=== PATIENT | male | born 1960 | race Caucasian/White ===

== ENCOUNTER 2017-09-02 14:33 | Observation (INO) | payer SELFPAY ==
[~2017-09-02] VITALS: Ht 177.8 cm; Wt 95.3 kg
[2017-09-02] MEDS ORDERED: NS(*) 0.9% 1000 ML BAG 1,000 ML IV ONE ×3 (14:35→18:50)
[2017-09-02] MEDS ORDERED: FOSPHENYTOIN(*) 500 MG/10 ML V 500 MG in NS(*) 0.9% 100 ML BAG 100 ML IVPB ONE (14:35)
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
[2017-09-02] MEDS ORDERED: GLIP-152 PO (14:37)
[2017-09-02] MEDS ORDERED: METF-420 PO (14:37)
[2017-09-02] MEDS ORDERED: LORazepam 2 MG/ML VIAL ONE (14:55)
[2017-09-02] MEDS ORDERED: LORazepam 2 MG/ML VIAL IVP ONE ×3 (14:55→18:00)
[2017-09-02 15:10] LABS: PLATELET COUNT, AUTOMATED 281 K/uL (150-450)
--- NOTE | 2017-09-02 15:17 | RADIOLOGY IMAGING REPORT ---
[place] [facility] [place] Bradley Egan : 1960 MR: [id number] V: [id number] EXAM DATE: ORDERING PHYSICIAN: LUIS PORTER TECHNOLOGIST: Location: [facility] Patient: Bradley Egan : 1960 Visit/Account:[id number] Date of Sevice: 09/02/2017 EXAMINATION: CT head without IV contrast HISTORY: Seizure. COMPARISON: None. TECHNIQUE: Contiguous axial images were obtained from the skull base to the vertex without intraven ous contrast. Sagittal and coronal reformatted images are also submitted. One of the following dose optimization techniques was utilized in the performance of this exam: Autom ated exposure control; adjustment of the mA and/or kV according to the patient's size; or use of an i terative reconstruction technique. Specific details can be referenced in the facility's radiology C T exam operational policy. FINDINGS: Brain volume: Normal. Ventricles: Normal. Acute ischemic changes: None. Hemorrhage: No acute intracranial hemorrhage. Masses/edema: None. Lynn-white: Negative. White matter: Normal. Vessels: Negative. Extra-axial: Negative. Calvarium/scalp: No acute fracture. Skull base/visualized face: Negative. Visualized sinuses/orbits: Negative. IMPRESSION: No acute fracture, hemorrhage or intracranial mass lesion. No CT evidence of acute infarct. Report Dictated By: Rere Chavarria MD at 09/02/2017 3:10 PM Report E-Signed By: Rere Chavarria MD at 09/02/2017 3:12 PM WSN:[email or web address]
[2017-09-02] MEDS ORDERED: INSU HUM REG 100 U/ML(ER ONLY) 10 ML VIAL IV ONE (15:20)
--- NOTE | 2017-09-02 15:31 | EKG ---
FACILITY: [facility] PATIENT NAME: YURI STEWART : [id number] MR: [id number] V: [id number] EXAM DATE: ORDERING PHYSICIAN: LUIS PORTER TECHNOLOGIST: Test Reason : Blood Pressure : / mmHG Vent. Rate : 091 BPM Atrial Rate : 091 BPM P-R Int : 132 ms QRS Dur : 084 ms QT Int : 358 ms P-R-T Axes : 034 037 032 degrees QTc Int : 440 ms Normal sinus rhythm Normal ECG No previous ECGs available Confirmed by BREN CHASE ([id number]) on 09/03/2017 6:42:18 AM Referred By: Confirmed By:BREN CHASE
--- NOTE | 2017-09-02 16:49 | RADIOLOGY IMAGING REPORT ---
FACILITY: [facility] PATIENT NAME: Bradley Egan : 1960 MR: [id number] V: [id number] EXAM DATE: ORDERING PHYSICIAN: LUIS PORTER [place]CHN[place] [facility] [place] : 1960 Visit/Account:[id number] Date of Sevice: 09/02/2017 Exam type: CHEST PA AND LAT History: seizure Comparison: None. Findings: The lungs are free of acute effusions, infiltrates or edema. There is no evidence of a pneumothorax or pneumomediastinum. Cardiac silhouette is normal in size. The trachea is in midline. IMPRESSION: 1. No acute cardiopulmonary process is seen Report Dictated By: Shea Barrett MD at 09/02/2017 4:45 PM Report E-Signed By: Shea Barrett MD at 09/02/2017 4:45 PM WSN:[id number]
--- NOTE | 2017-09-02 16:49 | RADIOLOGY IMAGING REPORT ---
FACILITY: [facility] [place] PATIENT NAME: Bradley Egan : 1960 MR: [id number] V: [id number] EXAM DATE: ORDERING PHYSICIAN: LUIS PORTER TECHNOLOGIST: Location: [facility] Patient: Bradley Egan : 1960 Visit/Account:[id number] Date of Sevice: 09/02/2017 EXAMINATION: Orbit radiograph single view HISTORY: Pre-MRI screening. History of corneal foreign body. Seizure. COMPARISON: None. FINDINGS: Single view of the orbits is obtained. No radiopaque or metallic foreign bodies of either orbit. Visualized bony structures are intact. IMPRESSION: Orbits are cleared for MRI. Report Dictated By: Rere Chavarria MD at 09/02/2017 4:43 PM Report E-Signed By: Rere Chavarria MD at 09/02/2017 4:43 PM WSN:[id number]
[2017-09-02] MEDS ORDERED: INSU HUM REG 100 U/ML(ER ONLY) 10 ML VIAL IVP ONE (16:50)
[2017-09-02] MEDS ORDERED: INSU HUM REG 100 U/ML(ER ONLY) 10 ML VIAL SUBQ ONE ×2 (17:30)
[2017-09-02] MEDS ORDERED: GADOBENATE 529MG/1ML 15ML VIAL IVP ONE (17:53)
[2017-09-02] MEDS ORDERED: INS HUM REG* 100 U/ML(ER ONLY) 100 UNIT in NS(*) 0.9% 100 ML BAG 99 ML IVPB ONE (17:55)
--- NOTE | 2017-09-02 20:23 | RADIOLOGY IMAGING REPORT ---
FACILITY: [facility] PATIENT NAME: Bradley Egan : 1960 MR: [id number] V: [id number] EXAM DATE: ORDERING PHYSICIAN: LUIS PORTER TECHNOLOGIST: [place] [facility] [place] Bradley Egan : 1960 Visit/Account:[id number] Date of Sevice: 09/02/2017 EXAMINATION: MRI Brain without IV contrast MRI Brain with IV contrast Cervical spine MRI without IV contrast Cervical spine MRI with IV contrast HISTORY: Seizure. Left arm pain. COMPARISON: None. TECHNIQUE: Multi-planar, multi-sequence brain and cervical spine MRI was performed before and after IV gadolinium. CONTRAST: 15 mL of IV MultiHance FINDINGS: Motion artifact on multiple sequences. BRAIN: Brain volume: Normal. Sagittal midline structures: Negative. Ventricles: Negative. Acute ischemic changes: None. Hemorrhage: None. Masses / edema: None. Enhancement: Normal. Lynn-white: Negative. White matter: Negative. Vessels: Negative. Extra-axial: None. Calvarium / scalp: Negative. Skull base: Negative. Visualized sinuses / orbits: Negative. Visualized upper neck: Negative. CERVICAL SPINE: Alignment: Normal. Vertebral marrow signal: Negative. Cranio-cervical junction: Negative. Visualized posterior fossa: Negative. Soft tissues: Negative. Cervical cord: Negative. Enhancement pattern: Negative. Disc Spaces: C1-2: Negative. C2-3: Small central disc protrusion. No significant stenosis. C3-4: Mild disc at loss with broad-based disc osteophyte complex and uncovertebral hypertrophy. No si gnificant spinal canal stenosis. Cannot evaluate for neural foraminal stenosis secondary to motion ar tifact. C4-5: Negative. C5-6: Negative. C6-7: Circumferential disc osteophyte complex. No significant spinal canal stenosis. Cannot evaluate neural foraminal stenosis secondary to motion artifact. C7-T1: Negative. IMPRESSION: 1. Suboptimal evaluation secondary to motion artifact on multiple sequences. 2. No definite abnormality in the brain. 3. Mild multilevel degenerative disc disease in the cervical spine. No significant spinal canal steno sis. Cannot evaluate for neural foraminal stenosis secondary to motion artifact. 4. No definite abnormal signal in the cervical spinal cord. Report Dictated By: Ronal Villarreal MD at 09/02/2017 8:11 PM Report E-Signed By: Ronal Villarreal MD at 09/02/2017 8:19 PM WSN:[id number]
--- NOTE | 2017-09-02 20:23 | RADIOLOGY IMAGING REPORT ---
FACILITY: [facility] - [place] PATIENT NAME: Bradley Egan : 1960 MR: [id number] V: [id number] EXAM DATE: ORDERING PHYSICIAN: LUIS PORTER TECHNOLOGIST: Location: [facility] - [place], [place] Patient: Bradley Egan : 1960 Visit/Account:[id number] Date of Sevice: 09/02/2017 EXAMINATION: MRI Brain without IV contrast MRI Brain with IV contrast Cervical spine MRI without IV contrast Cervical spine MRI with IV contrast HISTORY: Seizure. Left arm pain. COMPARISON: None. TECHNIQUE: Multi-planar, multi-sequence brain and cervical spine MRI was performed before and after IV gadolinium. CONTRAST: 15 mL of IV MultiHance FINDINGS: Motion artifact on multiple sequences. BRAIN: Brain volume: Normal. Sagittal midline structures: Negative. Ventricles: Negative. Acute ischemic changes: None. Hemorrhage: None. Masses / edema: None. Enhancement: Normal. Lynn-white: Negative. White matter: Negative. Vessels: Negative. Extra-axial: None. Calvarium / scalp: Negative. Skull base: Negative. Visualized sinuses / orbits: Negative. Visualized upper neck: Negative. CERVICAL SPINE: Alignment: Normal. Vertebral marrow signal: Negative. Cranio-cervical junction: Negative. Visualized posterior fossa: Negative. Soft tissues: Negative. Cervical cord: Negative. Enhancement pattern: Negative. Disc Spaces: C1-2: Negative. C2-3: Small central disc protrusion. No significant stenosis. C3-4: Mild disc at loss with broad-based disc osteophyte complex and uncovertebral hypertrophy. No si gnificant spinal canal stenosis. Cannot evaluate for neural foraminal stenosis secondary to motion ar tifact. C4-5: Negative. C5-6: Negative. C6-7: Circumferential disc osteophyte complex. No significant spinal canal stenosis. Cannot evaluate neural foraminal stenosis secondary to motion artifact. C7-T1: Negative. IMPRESSION: 1. Suboptimal evaluation secondary to motion artifact on multiple sequences. 2. No definite abnormality in the brain. 3. Mild multilevel degenerative disc disease in the cervical spine. No significant spinal canal steno sis. Cannot evaluate for neural foraminal stenosis secondary to motion artifact. 4. No definite abnormal signal in the cervical spinal cord. Report Dictated By: Ronal Villarreal MD at 09/02/2017 8:11 PM Report E-Signed By: Ronal Villarreal MD at 09/02/2017 8:19 PM WSN:[id number]
[2017-09-02 23:15] VITALS: BP 164/103
[2017-09-02] MEDS ORDERED: ACETAMINOPHEN 325 MG TAB PO PRN (23:20)
[2017-09-02] MEDS ORDERED: INFLUENZA VIRUS VAC 0.5 ML SYR IM ONLY ONE (23:20)
[2017-09-02] MEDS ORDERED: NS(*) 0.9% 1000 ML BAG 1,000 ML IV PRN (23:20)
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
[2017-09-03 06:01] VITALS: BP 132/71
[2017-09-03 06:22] LABS: PLATELET COUNT, AUTOMATED 221 K/uL (150-450)
[2017-09-03] MEDS ORDERED: NS 0.9% IVPB SCH (09:00)
[2017-09-03] MEDS ORDERED: FOSPHENYTOIN IVPB SCH (09:00)
[2017-09-03] MEDS ORDERED: [UNRECOGNIZED DRUG - OTHER] IVPB SCH (09:00)
[2017-09-03] MEDS ORDERED: GLIP-152 PO (09:01)
[2017-09-03] MEDS: glipiZIDE 5 MG TAB PO SCH (09:21)
[2017-09-03] MEDS ORDERED: LIDOCAINE 2% VISC SLN 15ML UDC PO PRN (09:25)
[2017-09-03] MEDS: INSULIN HUM LISPRO 100 UN/ML 3 ML VIAL SUBQ PRN ×4 (09:35→20:32)
[2017-09-03] MEDS: PHENYTOIN ER 100 MG CAPER PO SCH ×3 (09:35→20:32)
[2017-09-03 09:38] VITALS: Ht 177.8 cm; Wt 95.3 kg
--- NOTE | 2017-09-03 11:10 | Hospitalist Progress Note ---
Subjective Progress Notes Subjective This patient was admitted for seizures. He has not had any seizure activity since admission. Patient Complains of: Cardiovascular: No: Chest Pain Respiratory: No: Shortness of Breath Physical Exam Vital Signs Date Time Temp Pulse Resp B/P (MAP) Pulse Ox O2 Delivery O2 Flow Rate FiO2 09/03/17 09:42 76 09/03/17 06:01 98.5 18 132/71 (91) 92 Room Air 09/03/17 02:11 1.0 Intake and Output 09/04/17 07:00 # Voids 1 Neuro: No Gross deficits Cardiovascular: Regular Rate and Rhythm Respiratory: Clear to Auscultation Result Diagram: 09/03/1758 09/03/17 0558 Assessment and Plan Problems: (1) Seizure Status: Acute Assessment & Plan: He did present with what sounds like a focal motor seizure that generalized. He bit his tongue and was confused after the event. His lab work on arrival at the ER was consistent with this as well (elevated lactate and CPK, mild leukocytosis, elevated glucose). CT and MRI were unremarkable. He was given Ativan and fosphenytoin in the ER. We will start him on scheduled phenytoin today. An EEG is also pending. He has been informed that he will not be able to drive and will need to make arrangements to get his truck back home. (2) Type 2 diabetes mellitus Status: Chronic Assessment & Plan: The patient is on chronic treatment with metformin and glipizide. The metformin is on hold secondary to IV contrast. The glipizide has been restarted. We are also covering him with sliding scale level #2. (3) DARIN (obstructive sleep apnea) Status: Chronic Assessment & Plan: The patient wears a CPAP mask chronically. Exam Sepsis Risk: No Definite Risk PHILIP MC DO Sep 03, 2017 11:10
[2017-09-03 11:48] VITALS: BP 133/81
[2017-09-03 15:41] VITALS: BP 147/81
[2017-09-03 18:32] VITALS: BP 146/83
[2017-09-03 23:03] VITALS: BP 136/74
[2017-09-04 03:18] VITALS: BP 137/72
[2017-09-04 06:56] VITALS: BP 149/91
[2017-09-04] MEDS: glipiZIDE 5 MG TAB PO SCH (08:46)
[2017-09-04] MEDS: PHENYTOIN ER 100 MG CAPER PO SCH ×2 (08:46→12:26)
[2017-09-04] MEDS: INSULIN HUM LISPRO 100 UN/ML 3 ML VIAL SUBQ PRN ×2 (08:47→12:26)
[2017-09-04] MEDS ORDERED: metFORMIN HCL XR 500 MG TABCR PO SCH (09:00)
[2017-09-04] MEDS ORDERED: METXR500 PO (11:42)
[2017-09-04] MEDS ORDERED: PHEN100C88 PO (11:42)
--- NOTE | 2017-09-04 11:51 | Hospitalist Depart ---
Discharge Summary Reason for Hosp/Final Diag: (1) Seizure Status: Acute Hospital Course & Plan: He did present with what sounds like a focal motor seizure that generalized. He bit his tongue and was confused after the event. His lab work on arrival at the ER was consistent with this as well (elevated lactate and CPK, mild leukocytosis, elevated glucose). CT and MRI were unremarkable. He was given Ativan and fosphenytoin in the ER. He has been started on scheduled phenytoin. An EEG showed no seizure activity. He has been informed that he will not be able to drive and will need to make arrangements to get his truck back home. (2) Type 2 diabetes mellitus Status: Chronic Hospital Course & Plan: The patient is on chronic treatment with metformin and glipizide. He has been out of metformin for awhile, so hasn't been on it. Glucose was elevated on admission and had glucose in the urine suggesting chronically elevated glucose. It will be restarted today. Continue the glipizide. (3) DARIN (obstructive sleep apnea) Status: Chronic Hospital Course & Plan: The patient wears a CPAP mask chronically. Departure Weight (Pounds): 210 Result Diagram: 09/03/17 0558 09/03/17 0558 Item Value Date Time White Blood Count 12.8 k/uL H 09/02/17 1450 White Blood Count 12.2 k/uL H 09/03/17 0558 Hemoglobin 16.6 g/dL 09/02/17 1450 Hemoglobin 14.5 g/dL 09/03/17 0558 Neutrophils (%) (Auto) 78.5 % H 09/02/17 1450 Neutrophils (%) (Auto) 72.7 % H 09/03/17 0558 Platelet Count 281 K/uL 09/02/17 1450 Platelet Count 221 K/uL 09/03/17 0558 Troponin I 0.051 ng/ml 09/02/17 0000 Calcium Level 9.6 mg/dl 09/02/17 1450 Magnesium Level 2.3 mg/dl H 09/02/17 1450 Total Bilirubin 0.6 mg/dl 09/02/17 1450 Aspartate Amino Transf (AST/SGOT) 36 U/L H 09/02/17 1450 Alanine Aminotransferase (ALT/SGPT) 52 U/L 09/02/17 1450 Alkaline Phosphatase 72 U/L 09/02/17 1450 Random Glucose 424 mg/dl H 09/02/17 1450 Carbon Dioxide Level 14 mmol/L *L 09/02/17 1450 Blood Urea Nitrogen 19 mg/dl 09/02/17 1450 Creatinine 1.20 mg/dl 09/02/17 1450 Lactate 12.7 mmol/L *H 09/02/17 1450 Hemoglobin A1c 10.2 % H 09/02/17 1450 Osmolality 310 mOSM/K H 09/02/17 1450 Whole Blood Glucose 415 mg/DL H 09/02/17 1645 Whole Blood Glucose 213 mg/DL H 09/02/17 1943 Troponin I 0.031 ng/ml 09/03/17 0558 Lactate 2.2 mmol/L H 09/02/17 2110 Calcium Level 8.6 mg/dl 09/02/170 Calcium Level 8.4 mg/dl 09/03/17 0558 Total Bilirubin 0.7 mg/dl 09/03/17 0558 Aspartate Amino Transf (AST/SGOT) 28 U/L 09/03/17 0558 Alanine Aminotransferase (ALT/SGPT) 49 U/L 09/03/17 0558 Alkaline Phosphatase 52 U/L 09/03/17 0558 Carbon Dioxide Level 21 mmol/L L 09/02/170 Carbon Dioxide Level 19 mmol/L L 09/03/17 0558 Blood Urea Nitrogen 16 mg/dl 09/02/17 2110 Creatinine 1.00 mg/dl 09/02/17 2110 Creatinine 1.00 mg/dl 09/03/17 0558 Blood Urea Nitrogen 15 mg/dl 09/03/17 0558 Total Creatine Kinase 348 U/L H 09/02/17 2110 Total Creatine Kinase 464 U/L H 09/03/17 0558 Lactate 1.7 mmol/L 09/03/17 0558 Urine WBC 1 /HPF 09/02/17 1541 Urine RBC None /HPF 09/02/17 1541 Urine Leukocyte Esterase Negative 09/02/17 1541 Urine Ketones Trace mg/dL 09/02/17 1541 Urine Glucose (UA) 500 mg/dL 09/02/17 1541 Urine Blood Small 09/02/17 1541 Serum Alcohol < 10 mg/dl 09/02/17 1450 Acetone, Qualitative Negative 09/02/17 1450 Urine Cannabinoids Screen Negative 09/02/17 1541 Urine Cocaine Screen Negative 09/02/17 1541 Urine Benzodiazepines Screen Negative 09/02/17 1541 Urine Amphetamines Screen Negative 09/02/17 1541 Urine Phencyclidine Screen Negative 09/02/17 1541 Ur Tricyclic Antidepressants Screen Negative 09/02/17 1541 Urine Barbiturates Screen Negative 09/02/17 1541 Urine Opiates Screen Negative 09/02/17 1541 Imaging Please see the hospital chart for details of all the studies 09/02/17 CXR - 1. No acute cardiopulmonary process is seen 09/02/17 Brain MRI - 1. Suboptimal evaluation secondary to motion artifact on multiple sequences. 2. No definite abnormality in the brain. 3. Mild multilevel degenerative disc disease in the cervical spine. No significant spinal canal stenosis. Cannot evaluate for neural foraminal stenosis secondary to motion artifact. 4. No definite abnormal signal in the cervical spinal cord. 09/02/17 Cervical Spine MRI - 1. Suboptimal evaluation secondary to motion artifact on multiple sequences. 2. No definite abnormality in the brain. 3. Mild multilevel degenerative disc disease in the cervical spine. No significant spinal canal stenosis. Cannot evaluate for neural foraminal stenosis secondary to motion artifact. 4. No definite abnormal signal in the cervical spinal cord. 09/02/[address] - No acute fracture, hemorrhage or intracranial mass lesion. No CT evidence of acute infarct. EKG Vent. Rate : 091 BPM Atrial Rate : 091 BPM P-R Int : 132 ms QRS Dur : 084 ms QT Int : 358 ms P-R-T Axes : 034 037 032 degrees QTc Int : 440 ms Normal sinus rhythm Normal ECG No previous ECGs available Confirmed by BREN CHASE ([id number]) on 09/03/2017 6:42:18 AM Condition: Improved Discharge: Home Discharge Instructions Home Meds Active Scripts Phenytoin Sodium Extended (PHENYTOIN SODIUM EXTENDED) 100 Mg Capsule, 100 MG PO TID, #90 CAPSULE Prov:GIANNA TIRADO MD 09/04/17 Metformin Hcl (METFORMIN HCL ER) 500 Mg Tabcr, 1000 MG PO QDAY, #60 Prov:GIANNA TIRADO MD 09/04/17 Reported Medications Glipizide (GLIPIZIDE) 5 Mg Tablet, 5 MG PO QDAY 09/03/17 Discontinued Reported Medications Metformin Hcl (METFORMIN HCL) 1,000 Mg Tablet, 1 TAB PO QDAY, TAB 09/02/17 Glipizide (GLIPIZIDE) 5 Mg Tablet, PO 09/02/17 Diet: Diabetic Activity: As Tolerated Special Instructions: Follow up with a Neurologist to be investigate a cause of the seizures and to be cleared to drive again. Bring a copy of the disc with the radiologic studies, discharge summary and copy of the labs to the appointment. Venous Thromboembolism Antithrombotics Is Pt On Any Antithrombotics?: No GIANNA TIRADO MD Sep 04, 2017 11:51
== END 2017-09-04 11:44 | disposition home or self-care (01) ==
LOC: ER 14:33 → MED 22:24 → UNDOADMIN 22:24 → INTOOBSV 22:24
PROVIDERS: ADMIT Internal Medicine; ATTEND Internal Medicine
DX: E11.65 Type 2 diabetes mellitus with hyperglycemia (principal); G47.33 Obstructive sleep apnea (adult) (pediatric)
CPT/HCPCS: 36415; 36416; 70030; 70450; 70553; 71046; 72156; 80305; 80320; 81001; 82009; 82550; 82948; 83036; 83605; 83735; 83930; 84484; 85025; 93005; 95819; 96361; 96365; 96366; 96372; 96375; 99285; A9577; G0378; J1815; J2060; J7030; J7050; Q2009; 82040; 82247; 82310; 82374; 82435; 82565; 82947; 84075; 84132; 84155; 84295; 84450; 84460; 84520